=== PATIENT | male | born 1980 | race Caucasian/White ===

== ENCOUNTER 2016-11-08 19:32 | Emergency (ER) | payer OTHER ==
[~2016-11-08] VITALS: Ht 172.7 cm; Wt 85.7 kg
[2016-11-08 20:05] VITALS: BP 147/100
--- NOTE | 2016-11-08 20:21 | ED HEADACHE COMPLAINT ---
History of Present Illness General Chief Complaint: Headache Stated Complaint: PINTO FOR A WEEK Source: patient Exam Limitations: no limitations Vital Signs & Intake/Output Vital Signs & Intake/Output ED Intake and Output 11/09 0000 11/08 1200 Intake Total Output Total Balance Patient 189 lb Weight Allergies Coded Allergies: No Known Allergies (11/08/16) Reconcile Medications Butalb/Acetaminophen/Caffeine (Fioricet 50-300-40 MG Capsule) 50 MG-300 MG-40 MG CAPSULE 1 TAB PO Q4 PRN PAIN Triage Note: PT TO TRIAGE WITH C/O LEFT SIDED HEAD PRESSURE xWEEK, PRESSURE/PAIN IS CONSTANT 8/10. NO OTHER COMPLAINTS. VSS, Triage Nurses Notes Reviewed? yes Onset: Abrupt Duration: week(s): (1) Timing: recent history Quality/Severity: mild, moderate Head Injury Location: BEHIND LEFT EYE No Modifying Factors: none HPI: 36 year old male who presents to the ER for chief complaint of worsening left sided/left frontal headache for the past week getting worse. Denies any trauma. No blurred vision nausea or vomiting. He states he's been taking over-the- counter remedies without any relief. He was seen on Thursday at a walk-in clinic and they prescribed him a prescription "headache medicine and go. He is also been taking those without any relief. They told him that if symptoms get worse she come to the ER for evaluation. No history of migraine headaches. Past History Travel History Traveled to [place] past 21 day No Medical History Any Pertinent Medical History? none Surgical History Surgical History: none Psychosocial History What is your primary language Greenlandic Tobacco Use: Current Daily Use Daily Tobacco Use Amount/Type: => 5 Cigarettes daily Family History Hx Contributory? No Review of Systems Review of Systems Constitutional: Denies: chills, fever. Eyes: Reports: no symptoms. Ears, Nose, Throat, Mouth: Denies: ear pain, ear discharge, nose pain, nose discharge, epistaxis, mouth pain. Respiratory: Reports: no symptoms. Cardiovascular: Denies: chest pain, palpitations. Gastrointestinal/Abdominal: Reports: no symptoms. Genitourinary: Reports: no symptoms. Musculoskeletal: Reports: no symptoms. Skin: Reports: no symptoms. Neurological/Psychological: Reports: anxiety, headache. Hematologic/Endocrine: Denies: bruising, bleeding, polyuria, polydipsia. Endocrine: Reports: no symptoms. Immunologic/Allergic: Denies: splenectomy. All Other Systems: Reviewed and Negative Physical Exam Physical Exam General Appearance: well developed/nourished, alert, awake, anxious, mild distress Head: atraumatic, normal appearance Eyes: Bilateral: normal appearance, PERRL, EOMI. Ears, Nose, Throat: normal pharynx, normal ENT inspection, hearing grossly normal Neck: normal inspection, supple, full range of motion Respiratory: normal breath sounds, chest non-tender, no respiratory distress Cardiovascular: regular rate/rhythm Gastrointestinal: normal bowel sounds, soft, non-tender Back: normal inspection, normal range of motion Extremities: normal inspection, normal capillary refill, normal range of motion, no edema Psychiatric: awake, alert, oriented x 3 Cranial Nerves: normal hearing, normal speech, PERRL Coordination/Gait: normal gait Motor/Sensory: no motor/sensory deficits Core Measures Severe Sepsis Present: No Septic Shock Present: No Progress Differential Diagnosis: IC mass/tumor, migraine PINTO, musculoskeletal pain, sinusitis, subarach. Hem. Plan of Care: Orders Procedure Date/time Status CT HEAD WO IV CONTRAST 11/08 2030 Active Diagnostic Imaging: Viewed by Me: CT Scan. Discussed w/RAD: CT Scan. Radiology Impression: PATIENT: RAJIV RANDLE PRESENT AGE: 36 PATIENT ACCOUNT NO: [id number] : 82 LOCATION: [facility] ORDERING PHYSICIAN: MANN MARTELL MD SERVICE DATE: 11/08/16 EXAM TYPE: CAT - CT HEAD WO IV CONTRAST EXAMINATION: CT HEAD WITHOUT CONTRAST CLINICAL INFORMATION: Right-sided headache COMPARISON: None TECHNIQUE: Contiguous axial imaging was performed from the skull base to vertex without intravenous administration of contrast. DLP: 600.71 mGy-cm FINDINGS: There is no evidence of acute intracranial hemorrhage or territorial infarction. No abnormal mass effect or midline shift is seen. Wan to white matter differentiation is well preserved. No extra-axial fluid collections are identified. The ventricles are normal in size. There is no abnormal attenuation within the brain parenchyma. The osseous structures and soft tissues are normal. The mastoid air cells and visualized portions of the paranasal sinuses are well aerated. IMPRESSION: No acute intracranial pathology. DICTATED BY: SHMUEL ASHRAF MD DATE/TIME DICTATED :11/08/162048 TEAM TRUCK DRIVER:AMANDA DATE/TIME TRANSCRIBED:11/08/162048 CONFIDENTIAL, DO NOT COPY WITHOUT APPROPRIATE AUTHORIZATION. < Electronically signed in Other Vendor System> SIGNED BY: SHMUEL ASHRAF MD 11/08/162054 Departure Departure Time of Disposition: 2104 Disposition: HOME OR SELF CARE Condition: Stable Clinical Impression Primary Impression: Headache Referrals: JAMES CHOUDHURY,FREDI BULLOCK MD,[facility] [place]. PATIENT HAS NO PRIMARY CARE DR (PCP/Family) REGINA PASTOR MD Additional Instructions: FOLLOW UP WITH THE DOCTOR LISTED. CONTINUE THE MEDICINE FOR HEADACHES. MONITOR YOUR BLOOD PRESSURES DISCUSSED. Departure Forms: Customer Survey General Discharge Information Prescriptions: Current Visit Scripts Butalb/Acetaminophen/Caffeine (Fioricet 50-300-40 MG Capsule) 1 TAB PO Q4 PRN PAIN #20 TAB
--- NOTE | 2016-11-08 20:55 | CT SCAN REPORT ---
EXAMINATION: CT HEAD WITHOUT CONTRAST CLINICAL INFORMATION: Right-sided headache COMPARISON: None TECHNIQUE: Contiguous axial imaging was performed from the skull base to vertex without intravenous administration of contrast. DLP: 600.71 mGy-cm FINDINGS: There is no evidence of acute intracranial hemorrhage or territorial infarction. No abnormal mass effect or midline shift is seen. Wan to white matter differentiation is well preserved. No extra-axial fluid collections are identified. The ventricles are normal in size. There is no abnormal attenuation within the brain parenchyma. The osseous structures and soft tissues are normal. The mastoid air cells and visualized portions of the paranasal sinuses are well aerated. IMPRESSION: No acute intracranial pathology.
[2016-11-08] MEDS ORDERED: FIORICET 50-301 EACH PO (21:10)
== END 2016-11-08 21:14 ==
LOC: ERH 19:32
DX: R51 Headache (principal)